=== PATIENT | male | born 1995 | race Hispanic/Latino ===

== ENCOUNTER 2019-08-02 09:12 | Emergency (ER) | payer BC, SELFPAY ==
[2019-08-02] MEDS ORDERED: KETOROLAC 30 MG/ML INJ ONE (10:21)
[2019-08-02] MEDS ORDERED: TETANUS & DIPHTHERIA TOX,ADULT 0.5 ML VIAL ONE (10:21)
[2019-08-02] MEDS ORDERED: HYDROCODONE/APAP 10/325 TAB ONE (10:21)
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
--- NOTE | 2019-08-02 12:27 | RAD REPORT ---
EXAM DESCRIPTION: RAD - Lumbar Spine 3 Views - 08/02/2019 12:15 pm CLINICAL HISTORY: PAIN Radiculopathy COMPARISON: No comparisons FINDINGS: Vertebral body heights appear maintained. No compression fracture noted. Disc spaces are m aintained. No spondylolysis or spondylolisthesis. IMPRESSION: Negative study.
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
[2019-08-02 13:03] VITALS: TEMP 98; O2SAT 100
[2019-08-02 13:07] VITALS: BP 102/59
[2019-08-02 13:51] LABS: Urine Blood NEGATIVE (NEG); Urine Glucose NEGATIVE (NEG); Urine Protein 2+ (NEG); Urine Specific Gravity 1.025 (1.005-1.030)
== END 2019-08-02 12:57 | disposition home or self-care (01) ==
LOC: ER 09:12
DX: S93.402A Sprain of unspecified ligament of left ankle, initial encounter (principal); S50.811A Abrasion of right forearm, initial encounter; S70.211A Abrasion, right hip, initial encounter; S60.222A Contusion of left hand, initial encounter; V29.9XXA Motorcycle rider (driver) (passenger) injured in unspecified traffic accident, initial encounter; Z23 Encounter for immunization
CPT/HCPCS: 71045; 72100; 72170; 81003; 90471; 90714; 96372; 99284